=== PATIENT | male | born 1960 | race Caucasian/White ===

== ENCOUNTER 2017-07-16 17:19 | Emergency (ER) | payer SELFPAY ==
[~2017-07-16] VITALS: Ht 182.9 cm; Wt 88.5 kg
--- NOTE | 2017-07-16 17:45 | PHYS DOC ---
Past Medical History Past Medical History: No Pertinent History Past Surgical History: No Surgical History Additional Information: 0.5 TO 0.75 PPD Alcohol Use: None Drug Use: None Adult General Chief Complaint Chief Complaint: HAND PROBLEM HPI HPI Patient is a 57 year old male presents to the emergency department stating that he was trying to drill a hole in a door. He states his drug did not have a clutch on it and flu back and injured his hand. Patient states that he was right -hand dominant. Patient states that he has having increased pain with swelling noted in the hand area. He has taken 600 mg of ibuprofen with some relief noted. Patient is right-hand dominant. Review of Systems Review of Systems Constitutional: Denies fever or chills [] Eyes: Denies change in visual acuity, redness, or eye pain [] HENT: Denies nasal congestion or sore throat [] Respiratory: Denies cough or shortness of breath [] Cardiovascular: No additional information not addressed in HPI [] GI: Denies abdominal pain, nausea, vomiting, bloody stools or diarrhea [] : Denies dysuria or hematuria [] Musculoskeletal: Denies back pain. Right hand pain Integument: Denies rash or skin lesions [] Neurologic: Denies headache, focal weakness or sensory changes [] Endocrine: Denies polyuria or polydipsia [] Allergies Allergies Allergies Coded Allergies Type Severity Reaction Last Updated Verified No Known Drug Allergies 07/16/17 No Physical Exam Physical Exam Constitutional: Well developed, well nourished, no acute distress, non-toxic appearance. [] HENT: Normocephalic, atraumatic, bilateral external ears normal, oropharynx moist, no oral exudates, nose normal. [] Eyes: PERRLA, EOMI, conjunctiva normal, no discharge. [] Neck: Normal range of motion, no tenderness, supple, no stridor. [] Cardiovascular:Heart rate regular rhythm, Lungs & Thorax: No respiratory distress noted] Skin: Warm, dry, no erythema, no rash. [] Extremities: Swelling and tenderness noted on the right metacarpal areas, no cyanosis, no clubbing, ROM intact, no edema. Patient is able to move his fingers with minimal difficulty. Cap refill brisk less than 2 seconds. Radial pulse 2+. Neurologic: Alert and oriented X 3, normal motor function, normal sensory function, no focal deficits noted. [] Psychologic: Affect normal, judgement normal, mood normal. [] Current Patient Data Vital Signs Vital Signs Date Time Temp Pulse Resp B/P (MAP) Pulse Ox O2 Delivery O2 Flow Rate FiO2 07/16/17 17:33 98.3 82 16 150/81 (104) 97 Room Air 98.3 EKG EKG [] Radiology/Procedures Radiology/Procedures [] Course & Med Decision Making Course & Med Decision Making Pertinent Labs and Imaging studies reviewed. (See chart for details) Patient was offered hydrocodone here in the emergency department for pain control with patient refusing at this time. X-rays pending. 180 Patient with right 4th metacarpal fracture confirmed by Dr Shaikh. Patient will be placed in a ulnar gutter splint. Recommended ice packs on 20 minutes off treatment several times a day elevation as much as possible. Patient was recommended take ibuprofen 800 mg every 8 hours with food stop taking few develop upset stomach. Patient also be provided with hydrocodone for severe pain and discomfort he was instructed this medication will cause drowsiness do not take any be alert and oriented. Instructed to keep the splint and placed follows up with orthopedic. Patient was provided with discharge instructions treatment regimens and follow-up recommendations. Patient agrees with discharge instructions treatment regimens. All questions and concerns been answered at patient's bedside. [] Dragon Disclaimer Dragon Disclaimer This electronic medical record was generated, in whole or in part, using a voice recognition dictation system. Departure Departure Impression: Primary Impression: Fracture of fourth metacarpal bone of left hand Disposition: 01 HOME, SELF-CARE Condition: STABLE Referrals: ELBA OTOOLE MD (PCP) COLLIN KOVACS MD Patient Instructions: Hand Fracture, Metacarpals, [id number] Additional Instructions: Activity as tolerated. Keep the splint clean and dry. Do not remove the splint to follow-up with orthopedic. Ice packs on 20 minutes off 20 minutes several times a day. Elevation as much as possible. Ibuprofen 800 mg every 8 hours with food stop taking few develop an upset stomach. [place] for severe pain and discomfort. This medication will cause drowsiness do not take any be alert and oriented. Follow-up with orthopedic within the next 5 days. Return back to emergency prior signs symptoms become worse. Scripts Hydrocodone/Apap 5-325 (NORCO 5-325 TABLET) 1 Each Tablet 1 TAB PO PRN Q6HRS Y for PAIN, #20 TAB 0 Refills Prov: NHI COLLINS APRN 07/16/17 Splinting Splinting : Location: right hand Hand-Made Type: orthoglass Splint: ulnar Pre-Proc Neuro Vasc Exam: normal Post-Proc Neuro Vasc Exam: normal Problem Qualifiers Primary Impression: Fracture of fourth metacarpal bone of left hand Encounter type: initial encounter Fracture type: closed Metacarpal location : neck Fracture alignment: displaced Qualified Codes: S62.335A - Displaced fracture of neck of fourth metacarpal bone, left hand, initial encounter for closed fracture NHI COLLINS APRN Jul 16, 2017 17:45
[2017-07-16] MEDS ORDERED: HYDR-971 PO (18:10)
[2017-07-16 18:32] VITALS: BP 156/98
--- NOTE | 2017-07-17 09:03 | RAD ---
Right hand, 3 views, 07/16/2017: History: Pain, injury There is an oblique fracture of the fourth metacarpal shaft. There is only minimal dorsal displacement of the proximal end of the distal fracture fragment without significant angulation. No other fracture or dislocation is identified. There are mild scattered degenerative changes at the hand and wrist. IMPRESSION: Acute fourth metacarpal fracture. Note: The findings were called to personnel in the [facility] ER at 9:00 AM on 07/17/2017.
== END 2017-07-16 18:32 | disposition home or self-care (01) ==
LOC: ER 17:19
DX: S62.395A Other fracture of fourth metacarpal bone, left hand, initial encounter for closed fracture (principal); F17.200 Nicotine dependence, unspecified, uncomplicated; X58.XXXA Exposure to other specified factors, initial encounter; Y93.89 Activity, other specified; Y92.89 Other specified places as the place of occurrence of the external cause; Y99.8 Other external cause status
CPT/HCPCS: 29125; 73130; 99284-25

== ENCOUNTER → 2018-02-19 | Day surgery (SDC) | payer OTHER ==
[~2018-02-19] MED LIST: LIDOCAINE 1% PF 2 ML VIAL. ID; LIDOCAINE 2% PF Vial for OR 5 ML VIAL.; MIDAZOLAM HCL/PF 2 MG/2 ML VIAL. IV; PROPOFOL 40 ML IV; fentaNYL PF VIAL 100 MCG/2 ML VIAL IV
[2018-02-19] MEDS: IV RINGERS,LACTATED 1000ML 1,000 ML IV (06:46)
== END | disposition home or self-care (01) ==
LOC: ENDOS 06:13
DX: Z12.11 Encounter for screening for malignant neoplasm of colon (principal); D12.5 Benign neoplasm of sigmoid colon; K62.1 Rectal polyp; K64.0 First degree hemorrhoids; Z80.0 Family history of malignant neoplasm of digestive organs; Z82.49 Family history of ischemic heart disease and other diseases of the circulatory system; Z80.3 Family history of malignant neoplasm of breast; Z87.891 Personal history of nicotine dependence; Z79.899 Other long term (current) drug therapy
CPT/HCPCS: 45380; 45385; 88305; J2704